=== PATIENT | female | born 1940 | race Caucasian/White ===

== ENCOUNTER 2017-03-20 09:06 | Emergency (ER) | payer MEDICARE, OTHER ==
--- NOTE | 2017-03-20 09:47 | UC ---
Shoulder Pain HPI - HPI Summary HPI Summary: 76 Y/O female presents with C/O L shoulder pain S/P ground level fall. Denies other injury, did not hit head or experience LOC. States tripped over rock and caught herself with L arm. Decreased ROM with L arm, pain with movement. No obvious deformity or bruising noted. Medical history and medications reviewed at this visit. - History of Current Complaint Hx Obtained From: Patient Onset/Duration: Sudden Onset Timing: Intermittent Episode Lasting Severity Initially: Mild Severity Currently: Mild Location Of Pain: Is Discrete @ - L shoulder Pain Intensity: 0 - Pain with movement only Pain Scale Used: 0-10 Numeric Character: Sharp Aggravating Factor(s): Movement Alleviating Factor(s): Rest Associated Signs And Symptoms: Positive: Negative - Risk Factors Non-Orthopedic Risk Factor: Negative DVT Risk Factors: Negative <Anai Oliva - Last Filed: 03/20/17 11:00> <Lynne Cash - Last Filed: 03/20/17 12:30> - History of Current Complaint Chief Complaint: UCUpperExtremity Stated Complaint: POSSIBLE BROKEN SHOULDER Time Seen by Provider: 03/20/17 09:38 - Allergies/Home Medications Allergies/Adverse Reactions: Allergies Allergy/AdvReac Type Severity Reaction Status Date / Time Penicillins Allergy LOCALIZED Verified 03/20/17 09:31 RASH ENVIRONMENTAL/SEASONAL Allergy Congestion Uncoded 03/20/17 09:31 HAYFEVER SUNFLOWER SEED Allergy FUNNY Uncoded 03/20/17 09:31 FEELING-MOUTH / WEIRD FEELING IN STOMACH Home Medications: Home Medications Bimatoprost 0.01% OPHTH (NF) [Lumigan 0.01% OPHTH (NF)] 1 drop BOTH EYES TID [History Confirmed 03/20/17] Teriparatide (Recombinant) [Forteo] 600 mg SUBCON DAILY 03/20/17 [History Confirmed 03/20/17] PMH/Surg Hx/FS Hx/Imm Hx Previously Healthy: Yes - Surgical History Surgical History: Yes Surgery Procedure, Year, and Place: TONSILLECTOMY AND ADENOIDECTOMY AGE 4,. 1997 RIGHT TRIGGER FINGER RELEASE, [facility]. COLONOSCOPIES. 2010 LEFT TRIGGER FINGER RELEASE, [facility]. 2009 [place]ILATER[place] [facility] [place]. 2011 [place] FOR GLAUCOMA, [place]. 2012 [place] [facility] [place] ROOT CANAL SURGERY LOWER LEFT MOLAR X 2, OFFICE - Social History Alcohol Use: None Substance Use Type: None Smoking Status (MU): Never Smoked Tobacco <Anai Oliva - Last Filed: 03/20/17 11:00> Review of Systems Constitutional: Negative Skin: Negative Eyes: Negative ENT: Negative Respiratory: Negative Cardiovascular: Negative Gastrointestinal: Negative Genitourinary: Negative Motor: Negative Neurovascular: Negative Musculoskeletal: Decreased ROM - L shoulder Neurological: Negative Psychological: Negative Is Patient Immunocompromised?: No All Other Systems Reviewed And Are Negative: Yes <Anai Oliva - Last Filed: 03/20/17 11:00> Physical Exam Triage Information Reviewed: Yes Appearance: Well-Appearing Vital Signs: Initial Vital Signs Temp 97.2 F 03/20/17 09:25 Pulse 67 03/20/17 09:25 Resp 18 03/20/17 09:25 BP 141/77 03/20/17 09:25 Pulse Ox 99 03/20/17 09:25 Vital Signs Reviewed: Yes Respiratory Exam: Normal Respiratory: Positive: Lungs clear Cardiovascular Exam: Normal Cardiovascular: Positive: RRR Abdominal Exam: Normal Abdomen Description: Positive: Nontender Musculoskeletal Exam: Other Musculoskeletal: Positive: ROM Limited @ - L shoulder Neurological Exam: Normal Neurological: Positive: Alert Psychological Exam: Normal Skin Exam: Normal <Anai Oliva - Last Filed: 03/20/17 11:00> Vital Signs: Initial Vital Signs Temp 97.2 F 03/20/17 09:25 Pulse 67 03/20/17 09:25 Resp 18 03/20/17 09:25 BP 141/77 03/20/17 09:25 Pulse Ox 99 03/20/17 09:25 <Lynne Cash - Last Filed: 03/20/17 12:30> Shoulder Course/Dx - Differential Dx/Diagnosis Differential Diagnosis/HQI/PQRI: Contusion, Dislocation, Sprain, Strain Provider Diagnoses: Shoulder sprain / strain <Anai Oliva - Last Filed: 03/20/17 11:00> Discharge <Anai Oliva - Last Filed: 03/20/17 11:00> <Lynne Cash - Last Filed: 03/20/17 12:30> - Discharge Plan Condition: Stable Disposition: HOME Patient Education Materials: Shoulder Pain (ED), Shoulder Dislocation Exercises (GEN) Referrals: Shira Isbell MD [Primary Care Provider] - Ángel Retana MD [Medical Doctor] - Additional Instructions: Your XRay dose not show a fracture. Please use sling for comfort. Follow up with your orthopedic physician or with Dr Retana (orthopedics) if unable to locate previous physician. Take tylenol or ibuprofen for pain relief as needed ( please do not exceed recommended dosages). You may return to Urgent care if pain increases or does not improve over the next week. Attestation Statement User Type: Provider - I was available for consult. This patient was seen by the SAMUEL. The patient was not presented to, seen by, or examined by me. -Maria R <Lynne Cash - Last Filed: 03/20/17 12:30>
--- NOTE | 2017-03-20 10:33 | RAD ---
HISTORY: Fall with left shoulder pain and decreased range of motion COMPARISONS: May 13, 2005 VIEWS: 4, Frontal internal rotation, external rotation, outlet, and axillary views of the left shoulder FINDINGS: BONE DENSITY: Normal. BONES: The axillary view, there is a Hill-Sachs deformity of the posterior humeral head that is new from the 2005 examination. There is questionable cortical irregularity of the inferior glenoid JOINTS: There is mild osteoarthritis of the AC joint. ALIGNMENT: On axillary view, there is posterior subluxation of the humeral head with respect to the glenoid fossa. SOFT TISSUES: Unremarkable. OTHER FINDINGS: None. 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
[2017-03-20 11:24] VITALS: BP 140/83
== END 2017-03-20 11:15 | disposition home or self-care (01) ==
LOC: UCEAST 09:06
DX: S43.402A Unspecified sprain of left shoulder joint, initial encounter (principal); W01.0XXA Fall on same level from slipping, tripping and stumbling without subsequent striking against object, initial encounter; Y93.9 Activity, unspecified; Y92.9 Unspecified place or not applicable; Y99.9 Unspecified external cause status
CPT/HCPCS: 99212; G0463

== ENCOUNTER 2017-09-04 09:28 | Emergency (ER) | payer MEDICARE, OTHER ==
[2017-09-04 09:40] VITALS: BP 124/71
--- NOTE | 2017-09-04 09:55 | UC ---
Ear Complaint HPI - HPI Summary HPI Summary: Patient has 2 day history of complaints of feeling decreased hearing in her right ear and feels like her ears plugged patient attempted to irrigate ear at home without relief - History of Current Complaint Chief Complaint: UCEar Stated Complaint: EAR PLUGGED Time Seen by Provider: 09/04/17 09:49 Hx Obtained From: Patient ?: No Onset/Duration: Sudden Onset Severity Currently: None Pain Intensity: 0 Associated Signs/Symptoms: Positive: Hearing Loss, Foreign Body Sensation - Allergies/Home Medications Allergies/Adverse Reactions: Allergies Allergy/AdvReac Type Severity Reaction Status Date / Time Penicillins Allergy Rash Verified 09/04/17 09:34 ENVIRONMENTAL/SEASONAL Allergy Congestion Uncoded 03/20/17 09:31 HAYFEVER SUNFLOWER SEED Allergy FUNNY Uncoded 03/20/17 09:31 FEELING-MOUTH / WEIRD FEELING IN STOMACH Home Medications: Home Medications Timoptic 0.5% Opth* 1 .ROUTE BID 09/04/17 [History] PMH/Surg Hx/FS Hx/Imm Hx Previously Healthy: Yes - Surgical History Surgical History: Yes Surgery Procedure, Year, and Place: TONSILLECTOMY AND ADENOIDECTOMY AGE 4,. 1997 [place] TR[place] [facility] [place]. 2010 LEFT TRIGGER F[place] [facility] [place]. 2009 BILATERAL TEMPORAL ARTERY [place]SIES, [facility] [place] SK[place] SURGIES, [place]. 2010 SURGERY FOR GLAUCOMA, [place]. 2011 COLONOSCOPY WITH REMOVAL OF [place] [facility] [place]2013 ROOT CANAL SURGERY LOWER LEFT MOLAR X 2, OFFICE - Social History Occupation: Retired Lives: With Family Alcohol Use: None Substance Use Type: None Smoking Status (MU): Never Smoked Tobacco Review of Systems Constitutional: Negative Skin: Negative Eyes: Negative ENT: Ear Ache - Foreign body questionable cerumen impaction in her right ear Respiratory: Negative Cardiovascular: Negative Gastrointestinal: Negative Genitourinary: Negative Motor: Negative Neurovascular: Negative Musculoskeletal: Negative Neurological: Negative Psychological: Negative Is Patient Immunocompromised?: No All Other Systems Reviewed And Are Negative: Yes Physical Exam Triage Information Reviewed: Yes Appearance: Well-Appearing, No Pain Distress, Well-Nourished Vital Signs: Initial Vital Signs Temp 97.8 F 09/04/17 09:36 Pulse 76 09/04/17 09:36 Resp 16 09/04/17 09:36 BP 124/71 09/04/17 09:36 Pulse Ox 99 09/04/17 09:36 Vital Signs Reviewed: Yes Eye Exam: Normal Eyes: Positive: Conjunctiva Clear ENT Exam: Normal ENT: Positive: Normal ENT inspection, Hearing grossly normal, Pharynx normal, TMs normal - Left, Uvula midline, Other - Right ear was noted to have foreign body versus cerumen impaction unable to visualize TM. Ear irrigated and a engorged tick came out of her ear. Patient believes she may have been exposed to the tick yesterday she [place] in the [place] hiking. Negative: Nasal congestion, Trismus, Muffled voice, Hoarse voice, Dental tenderness Dental Exam: Normal Neck exam: Normal Neck: Positive: Supple, Nontender, No Lymphadenopathy Respiratory Exam: Normal Respiratory: Positive: Chest non-tender, Lungs clear, Normal breath sounds, No respiratory distress, No accessory muscle use Cardiovascular Exam: Normal Cardiovascular: Positive: RRR, No Murmur, Pulses Normal, Brisk Capillary Refill Musculoskeletal Exam: Normal Musculoskeletal: Positive: Strength Intact, ROM Intact, No Edema Neurological Exam: Normal Neurological: Positive: Alert, Muscle Tone Normal Psychological Exam: Normal Skin Exam: Normal Re-Evaluation - Re-Evaluation First Eval Change: Improved Ear Complaint Course/Dx - Course Course Of Treatment: Doxycycline 200 mg 1 now. Follow with PCP - Differential Dx/Diagnosis Provider Diagnoses: Foreign body removal from right ear, tick exposure Lyme postexposure prophylaxis Discharge - Sign-Out/Discharge Documenting (check all that apply): Discharge - Discharge Plan Condition: Stable Disposition: HOME Patient Education Materials: Ear Foreign Body (ED), Tick Bite (ED) Referrals: Shira Isbell MD [Primary Care Provider] - 4 Days () - Billing Disposition and Condition Condition: STABLE Disposition: HOME
[2017-09-04] MEDS ORDERED: DOXYcycline CAP(*) 100 MG PO ONE (10:11)
== END 2017-09-04 10:24 | disposition home or self-care (01) ==
LOC: UCEAST 09:28
DX: T16.1XXA Foreign body in right ear, initial encounter (principal); X58.XXXA Exposure to other specified factors, initial encounter; Y93.01 Activity, walking, marching and hiking; Y92.821 Forest as the place of occurrence of the external cause; Z88.0 Allergy status to penicillin
CPT/HCPCS: 99212; A9270-GY; G0463

== ENCOUNTER 2021-02-07 22:05 | Observation (INO) ==
[2021-02-07] MEDS ORDERED: NS 0.9% 1000 ml BAG 1,000 ML IV ONE (22:10)
[2021-02-07 22:33] LABS: ABS Basophils 0.1 10^3/ul (0-0.2); ABS Eosinophils 0.4 10^3/ul (0-0.6); ABS Lymphocytes 1.4 10^3/ul (1.0-4.8); ABS Monocytes 0.6 10^3/ul (0-0.8); ABS Neutrophils 3.2 10^3/ul (1.5-7.7); Eosinophil % 7.1 %; Hematocrit 42 % (35-47); Hemoglobin 13.7 g/dL (12.0-16.0); Lymphocyte % 24.4 %; Mean Corpuscular HGB Conc 33 g/dL (31-36); Mean Corpuscular Hemoglobin 28 pg (27-31); Mean Corpuscular Volume 83 fL (80-97); Mean Platelet Volume 7.8 fL (7.4-10.4); Nucleated Red Blood Cells % 0.2; Platelet Count 220 10^3/uL (150-450); Red Blood Count 4.98 10^6 /uL (3.70-4.87); Red Cell Distribution Width 15 % (10-15); White Blood Count 5.5 10^3/uL (3.5-10.8)
[2021-02-07 22:40] LABS: Activated Partial Thrombo Time 30.7 seconds (26.0-38.0); INR 1.09 (0.86-1.15)
[2021-02-07 22:43] LABS: Albumin 3.8 g/dL (3.2-5.2); Albumin/Globulin Ratio 1.4 (1-3); Calcium 9.1 mg/dL (8.6-10.3); EGFR African American 80.8 (>60); EGFR Non-African American 66.7 (>60); Globulin 2.8 g/dL (2-4); HDL Cholesterol 57.1 mg/dL; Potassium 4.1 mmol/L (3.5-5.0); Total Bilirubin 0.5 mg/dL (0.2-1.0); Total Protein 6.6 g/dL (6.4-8.9)
[2021-02-07 22:44] LABS: Troponin I 0.01 ng/mL (<0.03)
[2021-02-07] MEDS ORDERED: Iodixanol (CONTRAST) 320 MG/ML 100 ML SDV IV ONE (23:30)
[2021-02-08 02:34] LABS: Rapid COVID-19 Molecular Undetected (Undetected)
[2021-02-08] MEDS ORDERED: Enoxaparin 40 MG/0.4 ML SYR SUBCUT SCH (06:00)
[2021-02-08] MEDS ORDERED: PTO:Cyclosporine 0.05% OPHTH (NF) 0.4 ML VIAL BOTH EYES SCH (09:00)
[2021-02-08] MEDS ORDERED: TAFLUPROST 0.0015% BOTH EYES SCH (09:00)
[2021-02-08] MEDS ORDERED: Timolol 0.25% OPHTH.SOLN BTL BOTH EYES SCH (09:30)
[2021-02-08] MEDS ORDERED: CMC:Brimonidine P 0.15%(NF) OPH SOL 5 ML BTL BOTH EYES SCH (10:00)
[2021-02-08 11:21] VITALS: BP 111/58
== END 2021-02-08 14:30 | disposition home or self-care (01) ==
LOC: ED 22:05 → MEDTELE 22:05 → SUATTDRO 02-08 01:07 → MEDTELE 02-08 02:35
PROVIDERS: ADMIT Internal Medicine; ATTEND Internal Medicine

== ENCOUNTER 2022-02-11 18:21 | Observation (INO) ==
[2022-02-11] MEDS ORDERED: Iodixanol (CONTRAST) 320 MG/ML 100 ML SDV IV ONE (20:29)
[2022-02-11 20:40] LABS: ABS Eosinophils 0.1 10^3/ul (0-0.6); ABS Monocytes 0.4 10^3/ul (0-0.8); Eosinophil % 3.1 %; Hematocrit 43 % (35-47); Lymphocyte % 20.7 %; Mean Corpuscular HGB Conc 32 g/dL (31-36); Mean Corpuscular Hemoglobin 27 pg (27-31); Mean Corpuscular Volume 82 fL (80-97); Mean Platelet Volume 7.3 fL (7.4-10.4); Platelet Count 188 10^3/uL (150-450); Red Blood Count 5.28 10^6 /uL (3.70-4.87); Red Cell Distribution Width 16 % (10-15); White Blood Count 4.6 10^3/uL (3.5-10.8)
[2022-02-11 20:49] LABS: Activated Partial Thrombo Time 30.8 seconds (26.0-38.0); INR 1.04 (0.89-1.11)
[2022-02-11 21:25] LABS: Albumin 3.8 g/dL (3.2-5.2); Albumin/Globulin Ratio 1.8 (1-3); Calcium 8.7 mg/dL (8.6-10.3); Globulin 2.1 g/dL (2-4); HDL Cholesterol 57.6 mg/dL; Potassium 3.9 mmol/L (3.5-5.0); Total Bilirubin 0.7 mg/dL (0.2-1.0); Total Protein 5.9 g/dL (6.4-8.9); eGFR CKD-EPI 84.3 (>60)
[2022-02-11] MEDS ORDERED: Metoclopramide 5 MG/ML VIAL (10 mg) IV ONE (22:28)
[2022-02-11 22:43] LABS: Osmolality Serum 284 mOsm/kg (275-295)
[2022-02-12] MEDS ORDERED: Enoxaparin 40 MG/0.4 ML SYR SUBCUT SCH (01:00)
[2022-02-12 02:10] LABS: Urine Osmo 896 mOsm/kg (150-1150)
[2022-02-12 02:21] LABS: Urine Appearance Clear; Urine Bacteria Absent (Absent); Urine Bilirubin Negative (Negative); Urine Blood Negative (Negative); Urine Color Yellow; Urine Glucose Negative (Negative); Urine Ketones 1+ (Negative); Urine Nitrite Negative (Negative); Urine Protein 1+(30 mg/dL) (Negative); Urine Red Blood Cell Absent (Absent); Urine Squamous Epithelial Cell Present (Absent); Urine Urobilinogen Negative (Negative); Urine White Blood Cell Absent (Absent)
[2022-02-12 02:30] LABS: Urine Specific Gravity > 1.060 (1.002-1.030)
[2022-02-12 05:29] LABS: ABS Eosinophils 0.1 10^3/ul (0-0.6); ABS Lymphocytes 0.9 10^3/ul (1.0-4.8); ABS Monocytes 0.5 10^3/ul (0-0.8); Eosinophil % 2.4 %; Hematocrit 40 % (35-47); Hemoglobin 12.9 g/dL (12.0-16.0); Lymphocyte % 19.5 %; Mean Corpuscular HGB Conc 32 g/dL (31-36); Mean Corpuscular Hemoglobin 26 pg (27-31); Mean Corpuscular Volume 81 fL (80-97); Mean Platelet Volume 7.2 fL (7.4-10.4); Platelet Count 170 10^3/uL (150-450); Red Blood Count 4.89 10^6 /uL (3.70-4.87); Red Cell Distribution Width 15 % (10-15); White Blood Count 4.4 10^3/uL (3.5-10.8)
[2022-02-12 06:18] LABS: Albumin 3.3 g/dL (3.2-5.2); Albumin/Globulin Ratio 1.5 (1-3); Calcium 8.4 mg/dL (8.6-10.3); Globulin 2.2 g/dL (2-4); Total Bilirubin 0.8 mg/dL (0.2-1.0); Total Protein 5.5 g/dL (6.4-8.9); eGFR CKD-EPI 74.2 (>60)
[2022-02-12] MEDS ORDERED: TIMOLOL MALEATE BOTH EYES SCH (09:00)
[2022-02-12] MEDS: CMCS: Brimonidine P 0.15%(NF) OPH SOL 5 ML BTL BOTH EYES SCH ×2 (09:20→15:08)
[2022-02-12] MEDS ORDERED: Gadoteridol (CONTRAST) 279.3 MG/ML 10 ML IV ONE (12:54)
[2022-02-12] MEDS ORDERED: CMCS: Cyclosporine 0.05% OPHTH (NF) 0.4 ML VIAL BOTH EYES SCH (13:00)
[2022-02-12] MEDS: Timolol 0.5% OPTH.SOL BTL BOTH EYES SCH ×2 (15:10→15:12)
[2022-02-12 16:43] VITALS: BP 120/76
[2022-02-12] MEDS ORDERED: TAFLUPROST 0.0015% BOTH EYES SCH (21:00)
== END 2022-02-12 16:43 | disposition home or self-care (01) ==
LOC: EDHOLD 18:21 → ED 18:21 → EDHOLD 02-12 16:40 → UNDODISOB 02-12 16:42
PROVIDERS: ADMIT Student in an Organized Health Care Education/Training Program; ATTEND Student in an Organized Health Care Education/Training Program

== ENCOUNTER 2022-06-25 12:09 | Observation (INO) ==
[2022-06-25] MEDS ORDERED: Iodixanol (CONTRAST) 320 MG/ML 100 ML SDV IV ONE (12:40)
[2022-06-25 12:41] LABS: ABS Eosinophils 0.2 10^3/ul (0-0.6); ABS Lymphocytes 0.9 10^3/ul (1.0-4.8); ABS Monocytes 0.5 10^3/ul (0-0.8); ABS Neutrophils 2.9 10^3/ul (1.5-7.7); Eosinophil % 5.4 %; Hematocrit 47 % (35-47); Hemoglobin 14.8 g/dL (12.0-16.0); Lymphocyte % 19.3 %; Mean Corpuscular HGB Conc 32 g/dL (31-36); Mean Corpuscular Hemoglobin 26 pg (27-31); Mean Corpuscular Volume 82 fL (80-97); Mean Platelet Volume 7.3 fL (7.4-10.4); Platelet Count 212 10^3/uL (150-450); Red Cell Distribution Width 16 % (10-15); White Blood Count 4.6 10^3/uL (3.5-10.8)
[2022-06-25 12:50] LABS: INR 1.07 (0.88-1.18)
[2022-06-25 13:31] LABS: Albumin 4.1 g/dL (3.2-5.2); Albumin/Globulin Ratio 1.9 (1-3); Calcium 8.9 mg/dL (8.6-10.3); Creatinine, Serum 0.78 mg/dL (0.51-0.95); Globulin 2.2 g/dL (2-4); HDL Cholesterol 61.5 mg/dL; Potassium 4.4 mmol/L (3.5-5.0); Total Bilirubin 0.6 mg/dL (0.2-1.0); Total Protein 6.3 g/dL (6.4-8.9); eGFR CKD-EPI 75.3 (>60)
[2022-06-25] MEDS ORDERED: Enoxaparin 40 MG/0.4 ML SYR SUBCUT SCH (15:00)
[2022-06-25 15:22] LABS: Erythrocyte Sed Rate 5 mm/Hr (0-29)
[2022-06-25 17:08] LABS: C Reactive Protein 2.81 mg/L (<8.01)
[2022-06-25] MEDS ORDERED: Timolol 0.25% OPHTH.SOLN BTL BOTH EYES SCH (21:00)
[2022-06-25] MEDS ORDERED: TAFLUPROST 0.0015% BOTH EYES SCH (21:00)
[2022-06-25] MEDS ORDERED: CMCS: Brimonidine P 0.15%(NF) OPH SOL 5 ML BTL BOTH EYES SCH (21:00)
[2022-06-25] MEDS ORDERED: PTO: Brimonidine P 0.15%(NF) OPH SOL 5 ML BTL BOTH EYES SCH (21:02)
[2022-06-25] MEDS: PTO: Cyclosporine 0.05% OPHTH (NF) 0.4 ML VIAL BOTH EYES SCH (22:12)
[2022-06-25] MEDS: PTO: Timolol 0.5% OPTH.SOL BTL BOTH EYES SCH (22:12)
[2022-06-26 06:36] LABS: ABS Eosinophils 0.3 10^3/ul (0-0.6); ABS Lymphocytes 0.9 10^3/ul (1.0-4.8); ABS Monocytes 0.5 10^3/ul (0-0.8); ABS Neutrophils 2.8 10^3/ul (1.5-7.7); Eosinophil % 6.9 %; Hematocrit 42 % (35-47); Hemoglobin 13.8 g/dL (12.0-16.0); Lymphocyte % 19.4 %; Mean Corpuscular HGB Conc 33 g/dL (31-36); Mean Corpuscular Hemoglobin 26 pg (27-31); Mean Corpuscular Volume 80 fL (80-97); Mean Platelet Volume 7.6 fL (7.4-10.4); Nucleated Red Blood Cells % 0.1; Platelet Count 176 10^3/uL (150-450); Red Blood Count 5.25 10^6 /uL (3.70-4.87); Red Cell Distribution Width 16 % (10-15); White Blood Count 4.5 10^3/uL (3.5-10.8)
[2022-06-26 06:54] LABS: C Reactive Protein 3.37 mg/L (<8.01); Calcium 8.4 mg/dL (8.6-10.3); Creatinine, Serum 0.69 mg/dL (0.51-0.95); Potassium 3.9 mmol/L (3.5-5.0); eGFR CKD-EPI 86.1 (>60)
[2022-06-26 08:03] LABS: Erythrocyte Sed Rate 9 mm/Hr (0-29)
[2022-06-26] MEDS ORDERED: Aspirin EC 81 mg TAB.EC (enteric coated) PO SCH ×2 (09:00)
[2022-06-26] MEDS: PTO: Cyclosporine 0.05% OPHTH (NF) 0.4 ML VIAL BOTH EYES SCH (11:01)
[2022-06-26] MEDS: PTO: Timolol 0.5% OPTH.SOL BTL BOTH EYES SCH (11:01)
[2022-06-26 12:56] VITALS: BP 133/76
== END 2022-06-26 14:55 | disposition home or self-care (01) ==
LOC: ED 12:09 → EDHOLD 14:58 → SUATTDRO 14:58 → INTOOBSV 14:58 → EDHOLD 17:44 → MEDTELE 17:47
PROVIDERS: ADMIT Internal Medicine; ATTEND Internal Medicine